=== PATIENT | male | born 1995 | race Hispanic/Latino ===

== ENCOUNTER 2017-03-10 16:47 | Emergency (ER) | payer MEDICAID ==
[2017-03-10 17:13] VITALS: RESP 16; TEMP 99; O2SAT 99
--- NOTE | 2017-03-10 18:43 | ED PDOC ---
HPI: Male Pain Time Seen by Provider: 03/10/17 18:03 Chief Complaint (Nursing): Male Genitourinary Chief Complaint (Provider): left testicular pain History Per: Patient History/Exam Limitations: no limitations Onset/Duration Of Symptoms: Days (3) Current Symptoms Are (Timing): Still Present Severity: Mild Quality Of Discomfort: Sharp Associated Symptoms: denies: Nausea, Vomiting, Diarrhea, Loss Of Appetite, Urinary Symptoms Alleviating Factors: None Additional Complaint(s): 22yo male prior well c/o left testicular pain x3 days. Worse with movement or lying on stomach. Denies trauma or injury. Denies urinary symptoms, penile discharge, fever, hematuria, blood in ejaculate or back /abdominal pain. Past Medical History Reviewed: Historical Data, Nursing Documentation, Vital Signs Vital Signs: Last Vital Signs Temp 99 F 03/10/17 17:10 Pulse 125 H 03/10/17 17:10 Resp 16 03/10/17 17:10 BP 164/82 H 03/10/17 17:10 Pulse Ox 99 03/10/17 17:10 - Medical History PMH: No Chronic Diseases - Surgical History Surgical History: No Surg Hx - Family History Family History: States: Unknown Family Hx - Living Arrangements Living Arrangements: Other - Social History Current smoker - smoking cessation education provided: No - Allergies Allergies/Adverse Reactions: Allergies Allergy/AdvReac Type Severity Reaction Status Date / Time No Known Allergies Allergy Verified 03/10/17 17:10 Review of Systems ROS Statement: Except As Marked, All Systems Reviewed And Found Negative Constitutional: Negative for: Fever, Chills Cardiovascular: Negative for: Chest Pain, Palpitations Respiratory: Negative for: Cough, Shortness of Breath Gastrointestinal: Negative for: Nausea, Vomiting, Abdominal Pain Genitourinary Male: Positive for: Other (testicular pain). Negative for: Dysuria, Frequency, Incontinence, Hematuria, Penile Discharge, Rash Musculoskeletal: Negative for: Neck Pain, Arm Pain, Leg Pain Skin: Negative for: Rash, Lesions, Jaundice Neurological: Negative for: Weakness, Numbness Psych: Negative for: Anxiety Physical Exam - Reviewed Nursing Documentation Reviewed: Yes Vital Signs Reviewed: Yes - Physical Exam Appears: Positive for: Well, Non-toxic, No Acute Distress Head Exam: Positive for: ATRAUMATIC, NORMAL INSPECTION, NORMOCEPHALIC Skin: Positive for: Normal Color, Warm, DRY Eye Exam: Positive for: EOMI, Normal appearance, PERRL ENT: Positive for: Normal ENT Inspection Neck: Positive for: Normal Cardiovascular/Chest: Negative for: Tachycardia Respiratory: Negative for: Respiratory Distress Gastrointestinal/Abdominal: Positive for: Soft. Negative for: Tenderness Male Genital Exam: Positive for: epididymal tenderness (mild), testicular tenderness (L) (mild), other (no erythema, no induration ). Negative for: bleeding, inguinal tenderness, lesions, testicular tenderness (R), urethral discharge Back: Positive for: Normal Inspection Neurologic/Psych: Positive for: Alert, Oriented. Negative for: Motor/Sensory Deficits - ECG O2 Sat by Pulse Oximetry: 99 Medical Decision Making Medical Decision Making: UA and US testicles ordered Motrin ordered for pain Disposition - Disposition
[2017-03-10 19:22] VITALS: BP 132/75; PULSE 92
--- NOTE | 2017-03-10 19:27 | ED PDOC ---
- ECG O2 Sat by Pulse Oximetry: 99 Medical Decision Making Medical Decision Making: Time: 19:00 --Patient signed over to me by Dr. Cheema pending US. Time: 19:41 Testicular US FINDINGS: Right testicle: No mass. No torsion. Left testicle: No mass. No torsion. Epididymides: Unremarkable as visualized. Scrotum: Left varicocele. IMPRESSION: 1. No definite sonographic evidence of testicular torsion. 2. Incidental/non-acute findings are described above. Scribe Attestation: Documented by Tee Sam, acting as a scribe for Jose Roberto Merrill MD. Provider Scribe Attestation: All medical record entries made by the Scribe were at my direction and personally dictated by me. I have reviewed the chart and agree that the record accurately reflects my personal performance of the history, physical exam, medical decision making, and the department course for this patient. I have also personally directed, reviewed, and agree with the discharge instructions and disposition. Disposition Doctor Will See Patient In The: Office Counseled Patient/Family Regarding: Studies Performed, Diagnosis, Need For Followup - Clinical Impression Clinical Impression: Testicular pain, left, Left varicocele - POA Present On Arrival: None - Disposition Referrals: Cecilio Nielsen Jr., MD [Staff Provider] - Disposition: Routine/Home Disposition Time: 19:57 Additional Instructions: Take motrin for pain. Follow up with urologist within 1 week. Instructions: Varicocele (ED)
--- NOTE | 2017-03-10 19:41 | US ---
EXAM: US Scrotum CLINICAL HISTORY: 22 years old, male; Pain; Other: Left testicle area pain; Additional info: L testicular pain TECHNIQUE: Real-time ultrasound of the scrotum with color Doppler and image documentation. COMPARISON: No relevant prior studies available. FINDINGS: Right testicle: No mass. No torsion. Left testicle: No mass. No torsion. Epididymides: Unremarkable as visualized. Scrotum: Left varicocele. IMPRESSION: 1. No definite sonographic evidence of testicular torsion. 2. Incidental/non-acute findings are described above.
[2017-03-10 19:44] LABS: SQUAMOUS EPITHIAL < 1 /hpf (0-5); URINE BILIRUBIN NEGATIVE (NEGATIVE); URINE BLOOD NEGATIVE (NEGATIVE); URINE CLARITY CLEAR (Clear); URINE COLOR YELLOW (YELLOW); URINE GLUCOSE (UA) NEG (Normal); URINE LEUKOCYTE ESTERASE NEG Leu/uL (Negative); URINE NITRATE NEGATIVE (NEGATIVE); URINE PROTEIN NEGATIVE (NEGATIVE); URINE UROBILINOGEN 0.2-1.0 mg/dL (0.2-1.0)
== END 2017-03-10 20:31 | disposition home or self-care (01) ==
LOC: H.ER 16:47
DX: I86.1 Scrotal varices (principal)